=== PATIENT | female | born 1985 | race Caucasian/White ===

== ENCOUNTER 2017-02-15 14:57 | Emergency (ER) | payer OTHER ==
[2017-02-15 18:52] LABS: SPECIFIC GRAVITY 1.015 (1.001-1.030); URINE BILIRUBIN NEGATIVE (NEGATIVE); URINE BLOOD 1+ (NEGATIVE); URINE GLUCOSE (UA) NEGATIVE (NEGATIVE); URINE LEUKOCYTE ESTERASE NEGATIVE (NEGATIVE); URINE NITRITE NEGATIVE (NEGATIVE); URINE PROTEIN NEGATIVE (NEGATIVE); URINE UROBILINOGEN NORMAL (0-1 mg/dl)
[2017-02-15 18:55] LABS: URINE APPEARANCE CLEAR; URINE COLOR YELLOW
[2017-02-15] MEDS ORDERED: IBUPROFEN 600 MG TABLET ONE (18:57)
[2017-02-15] MEDS ORDERED: ACETAMINOPHEN 325 MG TABLET ONE (18:57)
[2017-02-15] MEDS ORDERED: PROCHLORPERAZINE 5 MG/ML 2 ML VIAL ONE (18:57)
[2017-02-15] MEDS ORDERED: LACTATED RINGERS 1,000 ML ONE (18:58)
[2017-02-15] MEDS ORDERED: DEXAMETHASONE 4 MG TABLET ONE (18:58)
[2017-02-15] MEDS ORDERED: DIPHENHYDRAMINE HCL 50 MG/1 ML VIAL ONE (19:03)
[2017-02-15 19:07] LABS: HCG,QUALITATIVE URINE NEGATIVE; URINE EPITHELIAL CELLS RARE /hpf; URINE WBC 0-1 /hpf
[2017-02-15 19:08] LABS: URINE BACTERIA 0
== END 2017-02-15 20:28 | disposition home or self-care (01) ==
LOC: ED 14:57
DX: J06.9 Acute upper respiratory infection, unspecified (principal); R51 Headache
CPT/HCPCS: 81025; 81001; 87804; 96375; 99283 ×2; 96374; J1200; J0780; A9270 ×3; J7120